=== PATIENT | female | born 1975 | race Caucasian/White ===

== ENCOUNTER → 2021-01-07 08:13 | Outpatient (CLI) | payer OTHER, SELFPAY ==
--- NOTE | ~2021-01-07 | XR_ITS ---
XR knee LT 2V 01/07/2021 08:33 Indication: Left knee pain Procedure: Left knee pain Comparison: 2 views left knee Findings: No fracture, subluxation or dislocation. There is mild tricompartment osteoarthritis. No si gnificant joint effusion. No foreign bodies. Impression: 1: Mild osteoarthritis of the left knee. Reviewed, dictated and finalized at location B. [facility] Impression: 1: Mild osteoarthritis of the left knee.
--- NOTE | ~2021-01-07 | XR_ITS ---
XR foot RT 2V DATE: 01/07/2021 08:33 INDICATION: Right foot pain TECHNIQUE: AP and lateral views COMPARISON: None FINDINGS: There is mild osteoarthritis at the first metatarsophalangeal joint. Plantar calcaneal enthesopathy, without erosive change or periostitis. No fracture or dislocation, periosteal reaction or bone destruction is detected. IMPRESSION: Plantar calcaneal enthesopathy Mild osteoarthritis at first metatarsophalangeal joint Reviewed, dictated and finalized at location A. [facility]
== END ==
LOC: EXPBRAD 08:16
PROVIDERS: PCP Emergency Medicine; Visit Provider Emergency Medicine
DX: M25.569 Pain in unspecified knee (principal); M79.671 Pain in right foot; M77.31 Calcaneal spur, right foot; M19.071 Primary osteoarthritis, right ankle and foot; M17.12 Unilateral primary osteoarthritis, left knee
CPT/HCPCS: 73560; 73620

== ENCOUNTER 2021-08-02 11:19 | Emergency (ER) | payer OTHER, SELFPAY ==
[2021-08-02 11:24] VITALS: BP 114/85; PULSE 92; RESP 16; TEMP 36.8; O2SAT 98
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
== END 2021-08-02 12:23 | disposition home or self-care (01) ==
PROVIDERS: Emergency Provider Registered Nurse
DX: L55.1 Sunburn of second degree (principal); E11.9 Type 2 diabetes mellitus without complications; I10 Essential (primary) hypertension; Z86.711 Personal history of pulmonary embolism; Z86.718 Personal history of other venous thrombosis and embolism; F41.9 Anxiety disorder, unspecified; F32.A Depression, unspecified
CPT/HCPCS: 99213; G0463